=== PATIENT | male | born 1985 | race Caucasian/White ===

== ENCOUNTER 2018-07-29 18:33 | Emergency (ER) | payer SELFPAY ==
[2018-07-29 18:46] VITALS: Ht 185.4 cm
[2018-07-29 19:47] VITALS: BP 144/80
== END 2018-07-29 19:47 | disposition home or self-care (01) ==
LOC: ED 18:33
DX: R10.9 Unspecified abdominal pain (principal); R11.2 Nausea with vomiting, unspecified; R19.7 Diarrhea, unspecified; J45.909 Unspecified asthma, uncomplicated; E11.9 Type 2 diabetes mellitus without complications; Z90.89 Acquired absence of other organs
CPT/HCPCS: J1885; Q0162

== ENCOUNTER 2020-06-01 15:47 | Emergency (ER) | payer SELFPAY ==
[~2020-06-01] VITALS: Ht 185.4 cm; Wt 104.8 kg
[2020-06-01 16:13] VITALS: Ht 185.4 cm; Wt 104.8 kg
[2020-06-01 18:08] LABS: BASOPHIL % 0.5 % (0-2); PLATELET COUNT 131 x10^3mcL (130-400); RED CELL DISTRIBUTION WIDTH 12.8 % (11.5-14.5)
[2020-06-01 18:13] LABS: CARBON DIOXIDE 29.4 mmol/L (21-32); CHLORIDE SERUM 98 mmol/L (98-107); CREATININE SERUM 1.1 mg/dL (0.7-1.3); GFR1 > 60 mL/min; GLUCOSE SERUM 258 mg/dL (74-106); POTASSIUM SERUM 3.8 mmol/L (3.5-5.1); SODIUM SERUM 134 mmol/L (136-145)
[2020-06-01 18:13] LABS: microscopic required? NO
[2020-06-01 18:19] LABS: ALKALINE PHOSPHATASE 105 U/L (46-116); ALT/SGPT 37 U/L (16-63); AST/SGOT 15 U/L (15-37); BILIRUBIN TOTAL 0.3 mg/dL (0.20-1.00)
[2020-06-01 18:20] LABS: urine erythrocyte NEGATIVE (NEGATIVE)
[2020-06-01 18:20] LABS: ALBUMIN 3.3 g/dL (3.4-5.0)
[2020-06-01 18:32] LABS: AMPHETAMINE QUAL UR NONE DETECTED (See below)
[2020-06-01 20:48] VITALS: BP 103/79
== END 2020-06-01 20:48 | disposition home or self-care (01) ==
LOC: ED 15:47
PROVIDERS: Emergency Medicine
DX: E11.65 Type 2 diabetes mellitus with hyperglycemia (principal); J45.909 Unspecified asthma, uncomplicated
CPT/HCPCS: J1885